=== PATIENT | female | born 1935 | race Caucasian/White ===

== ENCOUNTER 2016-09-14 18:21 | Inpatient (IN) | payer OTHER, BC ==
[~2016-09-14] VITALS: Ht 172.7 cm; Wt 70.3 kg
--- NOTE | 2016-09-14 18:21 | NUR ---
Patient was BIBA and taken to bed 02 via gurney per EMS.
[2016-09-14 18:22] VITALS: BP 166/81
[2016-09-14] MEDS ORDERED: ZESTRIL20 M2 (18:30)
[2016-09-14] MEDS ORDERED: CLOPIDOGREL75 MG (18:30)
[2016-09-14] MEDS ORDERED: NAMENDA XR28 MG (18:30)
[2016-09-14] MEDS ORDERED: ACETAMINOPHEN 325 MG SUPP RC ONE (18:30)
[2016-09-14] MEDS ORDERED: ATENOLOL25 MG (18:30)
[2016-09-14] MEDS ORDERED: LANTUS100 U/ML (18:30)
[2016-09-14] MEDS ORDERED: QUETIAPINE FUMA25 M1 (18:30)
[2016-09-14] MEDS ORDERED: COMPAZINE5 M2 (18:30)
[2016-09-14] MEDS ORDERED: ZOCOR40 M1 (18:30)
[2016-09-14] MEDS ORDERED: FUROSEMIDE20 M1 (18:30)
[2016-09-14] MEDS ORDERED: GLUCOPHAGE1000 MG (18:30)
[2016-09-14] MEDS ORDERED: JANUVIA25 MG (18:30)
[2016-09-14] MEDS ORDERED: ARICEPT10 MG (18:30)
[2016-09-14] MEDS ORDERED: ISOSORBIDE DINI30 M1 (18:30)
--- NOTE | 2016-09-14 18:30 | NUR ---
PATIENT PRESENTS TO ED WITH PT MARICAMRENA FROM SNF FOR EVALUATION OF SOB SINCE THIS AM, HX HTN, DM, DEMENTIA, HYPERLIPIDEMIA, CAD. PT HOSPITALIZED 1 WEEK AGO FOR PNEUMONIA. DENIES N/V/D; SKIN IS PINK/WARM/DRY; AAOX 2, UNABLE TO AMBULATE, LUNGS WHEEZING WITH DIMINISHED TO LBL LOWER LOBES,HR EVEN AND REGULAR, ST ON THE MONITOR; PT DENIES ANY FEVER, CP, SOB, OR COUGH AT THIS TIME; PATIENT STATES PAIN OF 0/10 AT THIS TIME; VSS; PATIENT POSITIONED FOR COMFORT; HOB ELEVATED; BEDRAILS UP X2; BED DOWN. ER MD MADE AWARE OF PT STATUS.
[2016-09-14] MEDS ORDERED: ALBUTEROL SULFATE/IPRATROPIU 3 ML SOL IH ONE (18:35)
--- NOTE | 2016-09-14 18:43 | NUR ---
Dr. Kowalski evaluating patient at bedside.
--- NOTE | 2016-09-14 18:44 | NUR ---
DAUGHTER ROMAINE AT BEDSIDE, TALKING WITH MD ABTES, STATES PT IS DNR.
--- NOTE | 2016-09-14 18:45 | NUR ---
RT at bedside/ XRAY at bedside.
--- NOTE | 2016-09-14 18:47 | NUR ---
RT AT BEDSIDE
[2016-09-14] MEDS ORDERED: PIPERACILLIN/TAZOBACTAM 3.375 GM in DEXTROSE 5% 50 ML IV ONE (18:55)
--- NOTE | 2016-09-14 19:20 | NUR ---
REPORT GIVEN TO KIRSTEN SWEET
[2016-09-14] MEDS ORDERED: PIPERACILLIN/TAZOBACTAM 3.375 GM VIAL IV ONE (19:27)
[2016-09-14] MEDS ORDERED: NACL 0.9% 500 ML IV ONE (19:35)
[2016-09-14] MEDS ORDERED: ONDANSETRON 4 MG/2 ML VIAL IVP PRN (20:05)
[2016-09-14] MEDS ORDERED: ALBUTEROL 0.083% 2.5 MG/3 ML NEBU INH PRN (20:05)
[2016-09-14] MEDS ORDERED: MORPHINE SULFATE 2 MG/ML SYR IVP PRN (20:05)
[2016-09-14] MEDS: NACL 0.9% 1,000 ML IV SCH (20:05)
[2016-09-14] MEDS ORDERED: ACETAMINOPHEN 325 MG TAB PO PRN (20:05)
[2016-09-14] MEDS ORDERED: HYDROcodone/APAP 7.5/325 MG 1 TAB PO PRN (20:05)
--- NOTE | 2016-09-14 20:05 | NUR ---
Patient will be admitted to care of DR. CHAND. Admited to TELEMETRY. Will go to room 109B. Belongings list completed. Report to COLETTE CURTIS.
--- NOTE | 2016-09-14 20:08 | NUR ---
PT ARRIVED ON UNIT IN STABLE CONDITION. NO SOB, NO SIGNS OF DISTRESS. PT IS AOX1, CONFUSED. PT IS BEDBOUND WITH SEVERE BLE WEAKNESS. DAUGHTER AND SON IN LAW AT BEDSIDE. PT ON 2L O2 NC. VS STABLE. IV TO LT WRIST 22G PATENT, ASYMPTOMATIC, INTACT, IVF RUNNING. ORIENTED PT TO ROOM AND UNIT. PLAN OF CARE DISCUSSED WITH PT AND FAMILY. PLACED PT ON FALL PRECAUTIONS. PLACED PT ON ASPIRATION PRECAUTIONS. LT HAND SWELLING NOTED. SACRAL REDNESS NOTED. REDNESS TO BILATERAL BREAST FOLDS NOTED, SKIN OTHERWISE INTACT. LUNG SOUNDS RONCHI AND WHEEZING NOTED. MEDICAL HISTORY PROVIDED BY PATIENTS DAUGHTER. DAUGHTER STATED PT IS ALLERGIC TO PCN, HOWEVER PT RECEIVED ZOSYN IN ER WITH NO REACTION, DAUGHTER STATED IT IS OK TO GIVE ZOSYN. SAFETY MEASURES IN PLACE. CALL LIGHT WITHIN REACH. WILL CONTINUE TO MONITOR.
[2016-09-14 21:38] VITALS: BP 132/67
--- NOTE | 2016-09-14 22:40 | NUR ---
SPOKE WITH MD JAGRUTI MD MADE AWARE OF CRITICAL 2ND LACTIC ACID 2.4 AND MAGNESIUM 1.6, MD GAVE ORDERS TO REPLETE MAGNESIUM, NO OTHER ORDERS RECEIVED. WILL FOLLOW UP WITH NEW ORDERS.
[2016-09-14] MEDS ORDERED: MAG SULF 2000 MG/WATER PREMIX 50 ML IV ONE (22:45)
[2016-09-15] VITALS: BP 141/84
[2016-09-15] MEDS ORDERED: PIPERACILLIN/TAZOBACTAM 3.375 GM in DEXTROSE 5% 50 ML IV SCH
--- NOTE | 2016-09-15 | NUR ---
VS STABLE. PT ON 2L O2 NC. NO SOB, NO SIGNS OF DISTRESS. IV SITE ASYMPTOMATIC, INTACT, PATENT, IVF RUNNING. PT DENIES PAIN AT THIS TIME. PLAN OF CARE DISCUSSED WITH PT. SAFETY MEASURES IN PLACE. CALL LIGHT WITHIN REACH. WILL CONTINUE TO MONITOR.
[2016-09-15] MEDS: Z-GUARD PASTE TP SCH ×2 (01:04→13:24)
[2016-09-15] MEDS ORDERED: PIPERACILLIN/TAZOBACTAM 2.25 GM VIAL IV ONE (01:22)
[2016-09-15] MEDS: PIPER/TAZO 2.25GM/D5W PREMIX 50 ML IV SCH ×2 (01:25→07:04)
--- NOTE | 2016-09-15 02:00 | NUR ---
PT TOLERATING DUE IVPB MED WELL, PT DENIES PAIN AT THIS TIME, PT VOIDED, CLEANED AND TURNED PT. TOLERATED WELL. APPLIED Z-GUARD. NO SOB, NO SIGNS OF DISTRESS. PT ON 2L O2 NC. IV SITE ASYMPTOMATIC, INTACT, IVPB RUNNING. PLAN OF CARE DISCUSSED WITH PT. SAFETY MEASURES IN PLACE. CALL LIGHT WITHIN REACH. WILL CONTINUE TO MONITOR.
[2016-09-15 04:00] VITALS: BP 142/76
--- NOTE | 2016-09-15 06:06 | NUR ---
CHECKED BLOOD USGAR, 149. NO COVERAGE [id number]. WILL ENDORSE TO AM SHIFT TO REQUEST MD FOR BLOOD SUGAR CHECKS, INSULIN, AND D50 ORDERS.
--- NOTE | 2016-09-15 06:54 | NUR ---
PT C/O FEELING LIKE SHE CANT BREATHE. SPOKE WITH RT MONICA, RT TO SEE PT FOR BREATHING TREATMENT IN A FEW MINUTES.
[2016-09-15] MEDS: NACL 0.9% 1,000 ML IV SCH (07:00)
--- NOTE | 2016-09-15 07:22 | NUR ---
ADDED BUBBLE HUMIDIFIER PT CANNOT PRODUCE SPUTUM AT THIS TIME
--- NOTE | 2016-09-15 07:30 | NUR ---
ENDORSED PT IN STABLE CONDITION TO GARRICK Muñoz RN. ALL NEEDS HAVE BEEN MET AT THIS TIME.
--- NOTE | 2016-09-15 07:30 | NUR ---
RECEIVED ON BED ASLEEP, LETHARGIC, RESPONSIVE TO TACTILE STIMULI. NO SOB NOTED. NO SIGNS OF PAIN AT THIS TIME. IV TO LT HAND PATENT AND INTACT. CHEST DIMINISHED AIR ENTRY TO THE BASES, CRACKLES HEARD ALL OVER. ABDOMEN SOFT, BOWEL SOUNDS PRESENT. WILL REPOSITION PT EVERY 2 HRS. FAMILY AT THE BEDSIDE. PLAN OF CARE DISCUSSED TO DAUGHTER JUAN, VERBALIZED UNDERSTANDING.
[2016-09-15 08:00] VITALS: BP 133/80
[2016-09-15] MEDS ORDERED: SACCHAROMYCES 250 MG CAP PO SCH (08:00)
[2016-09-15] MEDS ORDERED: DOCUSATE SODIUM 100 MG GELCAP PO SCH ×2 (09:00→21:00)
[2016-09-15] MEDS ORDERED: FAMOTIDINE 20 MG TAB PO SCH (09:00)
[2016-09-15] MEDS ORDERED: ALBUTEROL SULFATE/IPRATROPIU 3 ML SOL IH PRN (09:05)
--- NOTE | 2016-09-15 09:21 | NUR ---
PATIENT HAS BEEN SCREENED AND CATEGORIZED HIGH NUTRITION RISK. PATIENT WILL BE SEEN WITHIN 1-2 DAYS OF ADMISSION. 09/15/16-09/16/[address]
--- NOTE | 2016-09-15 09:55 | NUR ---
CONT. POX PLACED SPO2 100 ON 3 L N/C
[2016-09-15] MEDS ORDERED: LEVOFLOXACIN 750 MG/D5W PREMIX 150 ML IV SCH (10:00)
[2016-09-15 12:00] VITALS: BP 126/64
--- NOTE | 2016-09-15 12:02 | NUR ---
SS NOTE: PER DR. LAAR YANES, HE IS RECOMMENDED [facility] FOR PT. I SPOKE WITH PT'S DTR, JUAN AND SHE STATED THAT SHE IS IN AGREEMENT WITH DR. YANES'S RECOMMENDATION. I SPOKE WITH FLORENCE FROM [facility] ([phone]) AND SHE STATED THAT SHE WILL COME TO MEET WITH THE FAMILY AROUND 1230 TODAY.
--- NOTE | 2016-09-15 12:15 | NUR ---
WOUND CARE EVALUATION NOTES: REASON FOR EVALUATION: SACRALCOCCYX REDNESS COMPLETE SKIN ASSESSMENT DONE ON THIS 81 Y/O FEMALE PATIENT FROM [facility] TO [facility], WITH INITIAL DIAGNOSIS OF BILATERAL PNEUMONIA, ATRIAL FIBRILLATION. PAST MEDICAL HISTORY INCLUDE DEMENTIA AND PNEUMONIA. ALL ABOVE INFORMATION WAS OBTAINED FROM THE ADMISSION H&P. LABS ARE WBC 9.1, H/H 10.6/33.9, GLUCOSE 203, ALBUMIN 2.9, PT/INR 10.8/1.1 AND PTT 29.1. CURRENT MEDS INCLUDE ZOSYN, NORCO AND MORPHINE. PATIENT IS AWAKE, CONFUSED, ABLE TO FOLLOW SIMPLE COMMANDS. ON 02 PER NASAL CANNULA AT 3LPM. SKIN WARM TO TOUCH WNL, TOENAILS WNL, NO EDEMA, NO HAIR GROWTH AND +2 BILATERAL PEDAL PULSES. URINE AND BOWEL INCONTINENT. NEEDS ASSISTANCE IN TURNING. INITIAL PLAN OF CARE AND PRESSURE PREVENTIVE MEASURES DISCUSSED WITH PATIENT'S DAUGHTER, ABLE TO VERBALIZE UNDERSTANDING. INTEGUMENTARY: SACRALCOCCYX, PERIAREA AND BILATERAL GROIN - INCONTINENCE ASSOCIATED DERMATITIS - PW WITH SCARRING RECOMMENDATIONS: -CLEANSE SACRALCOCCYX, PERIAREA AND BILATERAL GROIN WITH MILD SOAP AND WATER, PAT DRY, APPLY HYDRAGUARD BIDWC AND PRN WITH SOILING. LEAVE OPEN TO AIR -TURN AND REPOSITION PATIENT Q2H TO LEFT AND RIGHT SIDE ONLY TO OFFLOAD SACRALCOCCYX -ASSESS AND MONITOR SKIN CONDITION DURING POSITION CHANGE, PLEASE PAY PARTICULAR ATTENTION TO SACARALCOCCYX, ELBOWS AND HEELS -OFFLOAD BILATERAL HEELS BY PLACING PILLOWS UNDER CALVES AT ALL TIMES, UNLESS OTHERWISE CONTRAINDICATED -PRESSURE REDISTRIBUTION SURFACE THERAPY -KEEP SKIN CLEAN AND DRY AT ALL TIMES. RECOMMENDATIONS DISCUSSED WITH PRIMARY RN AND RESIDENT PHYSICIAN, DR. LYNN. WILL FOLLOW UP PATIENT Q 7 DAYS AND PRN. PLEASE CONTACT [facility] FOR ANY CONCERNS, QUESTIONS AND CHANGES IN SKIN CONDITION.
[2016-09-15] MEDS ORDERED: CLINDAMYCIN 600 MG in DEXTROSE 5% 50 ML IV SCH (13:00)
[2016-09-15] MEDS ORDERED: ALBUTEROL SULFATE/IPRATROPIU 3 ML SOL IH SCH (13:00)
--- NOTE | 2016-09-15 13:30 | NUR ---
[address] LARA YANES AND HE STATED THAT HE IS PT'S PCP AND HAS HAD DISCUSSION WITH THE FAMILY REGARDING HOSPICE CARE AND THAT THEY DO WANT PT TO DISCHARGE TODAY WITH HOSPICE. IF FAMILY IN AGREEMENT PHYSICIAN IS RECOMMENDING ALL [facility].
[2016-09-15 16:00] VITALS: BP 130/75
[2016-09-15] MEDS ORDERED: FLORASTOR250 MG PO (16:30)
[2016-09-15] MEDS ORDERED: CLEOCIN HCL300 MG PO (16:30)
[2016-09-15] MEDS ORDERED: LEVAQUIN750 MG PO (16:30)
--- NOTE | 2016-09-15 16:45 | NUR ---
DISCHARGE INSTRUCTIONS AND PRESCRIPTIONS GIVEN TO PT'S DAUGHTER ED WHICH VERBALIZED FULL UNDERSTANDING OF THE INSTRUCTIONS GIVEN. ARM BANDS AND IV REMOVED, CANNULA TIP INTACT.
--- NOTE | 2016-09-15 17:00 | NUR ---
PT WHEELED OUT VIA GURNEY BY ALL [facility] IN STABLE CONDITION. NO SOB NOTED. PAIN SUNSIDNMG AT 2/10 ON THE PAIN SCALE . PT IS DISCHARGED BACK TO BOARD AND CARE WITH HOSPICE.
== END 2016-09-15 17:00 | disposition hospice, home (50) | DRG 871 ==
LOC: MED 18:21 → MTU 19:50
PROVIDERS: ADMIT Student in an Organized Health Care Education/Training Program; ATTEND Student in an Organized Health Care Education/Training Program
DX: A41.9 Sepsis, unspecified organism (principal); J69.0 Pneumonitis due to inhalation of food and vomit; G93.41 Metabolic encephalopathy; N17.0 Acute kidney failure with tubular necrosis; I50.43 Acute on chronic combined systolic (congestive) and diastolic (congestive) heart failure; N39.0 Urinary tract infection, site not specified; F03.91 Unspecified dementia, unspecified severity, with behavioral disturbance; E44.0 Moderate protein-calorie malnutrition; Z68.23 Body mass index [BMI] 23.0-23.9, adult; E83.42 Hypomagnesemia; D64.9 Anemia, unspecified; R31.9 Hematuria, unspecified; E11.65 Type 2 diabetes mellitus with hyperglycemia; E11.51 Type 2 diabetes mellitus with diabetic peripheral angiopathy without gangrene; I11.0 Hypertensive heart disease with heart failure; E78.5 Hyperlipidemia, unspecified; I25.10 Atherosclerotic heart disease of native coronary artery without angina pectoris; I16.0 Hypertensive urgency; I48.91 Unspecified atrial fibrillation; Z51.5 Encounter for palliative care; Z66 Do not resuscitate; Z72.89 Other problems related to lifestyle; Z74.01 Bed confinement status; I25.2 Old myocardial infarction; Z79.899 Other long term (current) drug therapy; Z88.0 Allergy status to penicillin; Z87.891 Personal history of nicotine dependence; Z86.73 Personal history of transient ischemic attack (TIA), and cerebral infarction without residual deficits